=== PATIENT | female | born 1980 | race African-American/Black ===

== ENCOUNTER 2017-12-09 08:27 | Emergency (ER) | payer OTHER ==
[~2017-12-09] VITALS: Ht 180.3 cm; Wt 91.2 kg
[~2017-12-09 08:27] MED LIST: ATARAX,VISTARIL50 MG PO; FIORICET 50-301 EACH PO; MEDROL DOSEPAK4 MG PO; METRONIDAZOLE70 GM VG; MOBIC7.5 MG PO; NOHOMEMEDS; PERCOCET 5/31 TABLET PO; PROMETHAZINE HC25 M1 PO; ROBITUSSIN AC,T10 ML PO; XANAX0.5 MG PO; ZOFRAN ODT4 MG PO
[2017-12-09 10:28] LABS: HEMOGLOBIN 13.4 G/DL (11.9-15.5); MCH 29.1 PG (29.0-34.0); MCHC 32.7 G/DL (30.0-36.0); MCV 88.9 FL (83-99); PLATELET COUNT 218 K/uL (156-360); RBC DIS.WIDTH-CV 13.9 % (11.8-14.6); RBC DIS.WIDTH-SD 45.3 % (39-53); RED BLOOD COUNT 4.61 M/uL (3.80-5.20); WHITE BLOOD COUNT 3.3 K/uL (4.1-10.2)
[2017-12-09 10:39] LABS: CHLORIDE 107 mEq/L (99-109); POTASSIUM 4.5 mEq/L (3.7-5.4); SODIUM 145 mEq/L (136-147)
[2017-12-09 10:41] LABS: GLUCOSE 86 mg/dL (70-99)
[2017-12-09 10:45] LABS: CREATININE 0.8 mg/dL (0.6-1.3); GFR ESTIMATE (CALCULATED) > 59 mL/min/
[2017-12-09 10:46] LABS: UREA NITROGEN (BUN) 6 mg/dL (9-23)
[2017-12-09] MEDS ORDERED: SUDAFED 12-HOU120 MG PO (12:08)
[2017-12-09] MEDS ORDERED: MOTRIN600 MG PO (12:08)
[2017-12-09 12:23] VITALS: BP 136/98
== END 2017-12-09 12:24 | disposition home or self-care (01) ==
LOC: EME 08:27
DX: B34.9 Viral infection, unspecified (principal); J45.909 Unspecified asthma, uncomplicated
CPT/HCPCS: 80048; 81003; 85027; 99281; 99283

== ENCOUNTER 2018-05-01 20:41 | Emergency (ER) | payer OTHER ==
[~2018-05-01] VITALS: Ht 180.3 cm; Wt 93.2 kg
[~2018-05-01 20:41] MED LIST changes: +MOTRIN600 MG PO; +SUDAFED 12-HOU120 MG PO
[2018-05-01 21:03] LABS: HEMATOCRIT 35.8 % (36.0-46.0); HEMOGLOBIN 12.3 G/DL (11.9-15.5); MCH 29.9 PG (29.0-34.0); MCHC 34.4 G/DL (30.0-36.0); MCV 86.9 FL (83-99); PLATELET COUNT 250 K/uL (156-360); RBC DIS.WIDTH-CV 12.5 % (11.8-14.6); RBC DIS.WIDTH-SD 40.1 % (39-53); RED BLOOD COUNT 4.12 M/uL (3.80-5.20); WHITE BLOOD COUNT 11.1 K/uL (4.1-10.2)
[2018-05-01 21:12] LABS: ALBUMIN 4.1 g/dL (3.2-4.8); CHLORIDE 106 mEq/L (99-109); SODIUM 140 mEq/L (136-147)
[2018-05-01 21:15] LABS: GLUCOSE 101 mg/dL (70-99); TOTAL PROTEIN 7.1 g/dL (6.4-8.3)
[2018-05-01 21:17] LABS: TOTAL BILIRUBIN 0.7 mg/dL (0.0-1.0)
[2018-05-01 21:18] LABS: ALKALINE PHOSPHATASE 55 IU/L (3-129); CREATININE 0.8 mg/dL (0.6-1.3); GFR ESTIMATE (CALCULATED) > 59 mL/min/
[2018-05-01 21:19] LABS: UREA NITROGEN (BUN) 10 mg/dL (9-23)
[2018-05-01 21:20] LABS: AST (GOT) 22 IU/L (2-34)
[2018-05-01 21:21] LABS: ALT (GPT) 13 IU/L (3-49)
[2018-05-01 21:30] LABS: QUANTITATIVE HCG 2292.3 MIU/ML
[2018-05-01] MEDS ORDERED: PERCOCET 5/31 TABLET PO (22:53)
[2018-05-01] MEDS ORDERED: MOTRIN800 MG PO (22:57)
[2018-05-01 23:50] VITALS: BP 103/77
== END 2018-05-01 23:51 | disposition home or self-care (01) ==
LOC: EME 20:41
DX: O03.9 Complete or unspecified spontaneous abortion without complication (principal); O02.0 Blighted ovum and nonhydatidiform mole; D25.9 Leiomyoma of uterus, unspecified; N83.202 Unspecified ovarian cyst, left side
CPT/HCPCS: 76801; 80053; 81003; 84702; 85027; 99281; 99284; J1885; J2405

== ENCOUNTER 2018-05-31 22:04 | Inpatient (IN) | payer OTHER ==
[~2018-05-31] VITALS: Ht 180.3 cm; Wt 91.6 kg
[~2018-05-31 22:04] MED LIST changes: +MOTRIN800 MG PO
[2018-06-01 05:56] VITALS: BP 133/93
[2018-06-01 06:15] LABS: BASOPHIL (%) 0.7 % (0-1); EOSINOPHIL COUNT 0.2 K/uL (0-0.3); HEMATOCRIT 36.7 % (36.0-46.0); HEMOGLOBIN 12.3 G/DL (11.9-15.5); IMMATURE GRANULOCYTE (%) 0.2 % (0.0-0.7); LYMPHOCYTE (%) 48.5 % (15-42); LYMPHOCYTE COUNT 2.1 K/uL (1.0-2.8); MCH 28.9 PG (29.0-34.0); MCHC 33.5 G/DL (30.0-36.0); MCV 86.2 FL (83-99); MONOCYTE (%) 7.3 % (3-12); MONOCYTE COUNT 0.3 K/uL (0-0.8); NEUTROPHIL (%) 39.3 % (45-76); NEUTROPHIL COUNT 1.7 K/uL (1.8-6.4); RBC DIS.WIDTH-CV 13.2 % (11.8-14.6); RBC DIS.WIDTH-SD 40.9 % (39-53); RED BLOOD COUNT 4.26 M/uL (3.80-5.20); WHITE BLOOD COUNT 4.2 K/uL (4.1-10.2)
[2018-06-01 06:20] LABS: PLATELET COUNT 221 K/uL (156-360)
[2018-06-01 13:35] VITALS: BP 111/68
[2018-06-01 15:59] VITALS: BP 121/80
[2018-06-01 19:36] VITALS: BP 126/97
[2018-06-01 23:57] VITALS: BP 127/81
[2018-06-02 06:17] LABS: HEMATOCRIT 32.2 % (36.0-46.0); HEMOGLOBIN 10.6 G/DL (11.9-15.5); MCH 28.3 PG (29.0-34.0); MCHC 32.9 G/DL (30.0-36.0); MCV 85.9 FL (83-99); PLATELET COUNT 213 K/uL (156-360); RBC DIS.WIDTH-CV 13.2 % (11.8-14.6); RBC DIS.WIDTH-SD 40.7 % (39-53); RED BLOOD COUNT 3.75 M/uL (3.80-5.20); WHITE BLOOD COUNT 8.2 K/uL (4.1-10.2)
[2018-06-02 07:43] VITALS: BP 126/76
[2018-06-02 11:32] VITALS: BP 111/75
[2018-06-02 16:05] VITALS: BP 118/79
[2018-06-02 23:34] VITALS: BP 111/70
[2018-06-03 03:21] VITALS: BP 108/75
[2018-06-03 07:52] VITALS: BP 114/70
[2018-06-03] MEDS ORDERED: HYDROCODON-ACE1 EAC7 PO (08:53)
[2018-06-03] MEDS ORDERED: IBUPROFEN800 MG PO (08:53)
[2018-06-03] MEDS ORDERED: DOCUSATE SODIU100 MG PO (08:53)
== END 2018-06-03 14:50 | disposition home or self-care (01) | DRG 742 ==
LOC: ENRESERV 22:04 → 2SOUTH 06-01 02:44 → 2EAST 06-01 05:29 → 2SOUTH 06-01 05:29 → ENRESERV 06-01 10:32 → 2EAST 06-01 13:22 → 2SOUTH 06-01 13:56 → 2EAST 06-03 14:50
PROVIDERS: Obstetrics & Gynecology
DX: D25.9 Leiomyoma of uterus, unspecified (principal); N92.1 Excessive and frequent menstruation with irregular cycle; R10.2 Pelvic and perineal pain; F33.1 Major depressive disorder, recurrent, moderate; F41.0 Panic disorder [episodic paroxysmal anxiety]; E78.00 Pure hypercholesterolemia, unspecified; E78.1 Pure hyperglyceridemia; J45.20 Mild intermittent asthma, uncomplicated; E66.3 Overweight; Z68.27 Body mass index [BMI] 27.0-27.9, adult
CPT/HCPCS: 81025; 85025; 85027; 86850; 86900; 86901; 88307; J0690; J1100; J1170; J1200; J1885; J2250; J2405; J2710; J3010; J7120; J7643; Q0175